=== PATIENT | male | born 1980 | race Caucasian/White ===

== ENCOUNTER 2017-08-17 17:54 | Emergency (ER) | payer OTHER ==
[2017-08-17 18:06] VITALS: BP 131/85; PULSE 86; TEMP 98.7; BMI 23.4
--- NOTE | 2017-08-17 18:07 | PDOC ---
Rapid Medical Evaluation Time Seen by Provider: 08/17/17 18:05 Medical Evaluation: Allergies Allergy/AdvReac Type Severity Reaction Status Date / Time No Known Allergies Allergy Verified 08/17/17 18:01 08/17/17 18:05 The patient presents with a chief complaint of: urinary frequency I have performed a brief in-person evaluation of this patient. Pertinent physical exam findings: vss I have ordered the following: ua, needs fs The patient will proceed to the ED for further evaluation.
[2017-08-17 18:29] LABS: URINE APPEARANCE CLEAR; URINE BILIRUBIN NEGATIVE (NEGATIVE); URINE BLOOD NEGATIVE (NEGATIVE); URINE COLOR COLORLESS; URINE GLUCOSE (UA) NEGATIVE (NEGATIVE); URINE KETONE NEGATIVE (NEGATIVE); URINE LEUK ESTERASE NEGATIVE (NEGATIVE); URINE NITRITE NEGATIVE (NEGATIVE); URINE PROTEIN NEGATIVE (NEGATIVE); URINE UROBILINOGEN NEGATIVE mg/dL (0.2-1.0)
--- NOTE | 2017-08-17 18:43 | PDOC ---
History of Present Illness - General Chief Complaint: Urinary Problem Stated Complaint: URINE PROBLEM Time Seen by Provider: 08/17/17 18:05 History Source: Patient - History of Present Illness Timing/Duration: reports: other Past History - Past Medical History Allergies/Adverse Reactions: Allergies Allergy/AdvReac Type Severity Reaction Status Date / Time No Known Allergies Allergy Verified 08/17/17 18:01 Home Medications: Ambulatory Orders No Home Medications 0 mg PO DAILY 11/01/13 COPD: No Other medical history: DENIES. - Suicide/Smoking/Psychosocial Hx Smoking History: Never smoked Have you smoked in the past 12 months: No Hx Alcohol Use: No Drug/Substance Use Hx: No Review of Systems - Review of Systems Constitutional: No: Chills, Fever ABD/GI: No: Nausea, Vomiting, Abdominal cramping : Yes: Frequency. No: Burning, Dysuria, Discharge, Flank Pain, Hematuria *Physical Exam - Vital Signs Last Vital Signs Temp Pulse Resp BP Pulse Ox 98.7 F 86 19 131/85 100 08/17/17 18:01 08/17/17 18:01 08/17/17 18:01 08/17/17 18:01 08/17/17 18:01 - Physical Exam General Appearance: Yes: Appropriately Dressed. No: Apparent Distress HEENT: positive: Normal Voice Neck: positive: Supple Respiratory/Chest: negative: Respiratory Distress Gastrointestinal/Abdominal: positive: Soft. negative: Tender Musculoskeletal: negative: CVA Tenderness Integumentary: positive: Dry, Warm Neurologic: positive: Fully Oriented, Alert, Normal Mood/Affect Medical Decision Making - Medical Decision Making 08/17/17 18:28 37-year-old male, no significant history, here with multiple complaints. Patient complaining of urinary frequency 1 week. No dysuria otherwise and no hematuria, flank pain, nausea, vomiting, testicular pain/swelling, fever or chills. Denies urethral discharge, new sexual partner or h/o STDs. No dizziness/weakness/weight loss. Patient does report that he purposely started drinking more water frequently as he has "given up" drinking soda and juices. Patient also states he has bilateral shoulder pain x 2 weeks after recently started working out in the gym. Not taking anything for pain. See exam Urinary freq Possibly 2/2 more fluid uptake vs less likely uti or STD Exam unremarkable -ua/cx/gc/chlam -anticipate discharge B/l shoulder pain M/l MSK, 2/2 recent weight lifting Exam unremarkable -dc w/ otc meds as needed 08/17/17 18:44 Ua w/ no e/o infxn and neg glucose. Cxs sent. Pt discharged to f/u on cx results *DC/Admit/Observation/Transfer Diagnosis at time of Disposition: Urinary frequency - Discharge Dispostion Disposition: HOME Condition at time of disposition: Good - Referrals Referrals: Pee Elder [Primary Care Provider] - - Patient Instructions Additional Instructions: The cause of your urinary frequency is possibly due to you increasing fluids. Your urinalysis did not show any evidence of infection and there was no glucose (sugar) Call for culture results in 2-3 days at [phone] Your bilateral shoulder pain is most likely muscular, due to your recent weight lifting. Rest and take Motrin as needed - Post Discharge Activity
== END 2017-08-17 18:50 | disposition home or self-care (01) ==
LOC: JERFT 17:54
DX: R35.0 Frequency of micturition (principal)
CPT/HCPCS: 36415; 81003; 87086; 87491; 87591; 99281-25

== ENCOUNTER 2019-06-28 22:17 | Emergency (ER) | payer OTHER ==
[2019-06-28 22:41] VITALS: BMI 24.8
[2019-06-29] MEDS ORDERED: SODIUM CHLORIDE 1,000 ML IV STA (00:09)
[2019-06-29 00:51] LABS: BASO % 0.5 % (0-2.0); EOS % 1.9 % (0-4.5); HEMATOCRIT 41.9 % (35.4-49); HEMOGLOBIN 14.3 GM/dL (11.7-16.9); LYMPH % 33.9 % (8-40); MCH 32.2 pg (25.7-33.7); MCHC 34.1 g/dl (32.0-35.9); MEAN CELL VOLUME 94.4 fl (80-96); MEAN PLT VOLUME 7.9 fl (7.5-11.1); MONO % 10.5 % (3.8-10.2); NEUT % 53.2 % (42.8-82.8); PLATELET COUNT 221 K/MM3 (134-434); RBC 4.44 M/mm3 (4.00-5.60); RDW 12.7 % (11.9-15.9); WHITE BLOOD COUNT 7.3 K/mm3 (4.0-10.0)
[2019-06-29 01:04] LABS: PH,URINE 6.5 (5.0-8.0); URINE APPEARANCE CLEAR; URINE BILIRUBIN NEGATIVE (NEGATIVE); URINE COLOR YELLOW; URINE GLUCOSE (UA) NEGATIVE (NEGATIVE); URINE KETONE NEGATIVE (NEGATIVE); URINE LEUK ESTERASE NEGATIVE (NEGATIVE); URINE NITRITE NEGATIVE (NEGATIVE); URINE PROTEIN NEGATIVE (NEGATIVE); URINE UROBILINOGEN 0.2 mg/dL (0.2-1.0)
--- NOTE | 2019-06-29 01:10 | PDOC ---
History of Present Illness - General Chief Complaint: Urinary Problem Stated Complaint: URANAL PROBLEM Time Seen by Provider: 06/28/19 23:28 Past History - Past Medical History Allergies/Adverse Reactions: Allergies Allergy/AdvReac Type Severity Reaction Status Date / Time No Known Allergies Allergy Verified 06/28/19 22:29 Home Medications: Ambulatory Orders No Home Medications 0 mg PO DAILY 11/01/13 COPD: No - Psycho Social/Smoking Cessation Hx Smoking History: Never smoked Have you smoked in the past 12 months: No Hx Alcohol Use: No Drug/Substance Use Hx: No *Physical Exam - Vital Signs Last Vital Signs Temp Pulse Resp BP Pulse Ox 98.4 F 65 16 139/77 100 06/28/19 22:29 06/28/19 22:29 06/28/19 22:29 06/28/19 22:29 06/28/19 22:29 ED Treatment Course - LABORATORY CBC & Chemistry Diagram: 06/28/19 00:30 06/28/19 00:30 Discharge - Follow up/Referral Referrals: ON STAFF,NOT [Primary Care Provider] - Naga Chowdary MD [Staff Physician] - Tereso Copeland MD [Staff Physician] - Wally Naylor MD [Staff Physician] - Ebony Lorenzo MD [Staff Physician] - Arturo Coulter MD., MD [Staff Physician] - CallBack Reminder: GC results - Patient Discharge Instructions - Post Discharge Activity
[2019-06-29 01:19] LABS: ALBUMIN 3.9 g/dl (3.4-5.0); BILIRUBIN,TOTAL 0.5 mg/dL (0.2-1); BLOOD UREA NITROGEN 17.3 mg/dL (7-18); CALCIUM 8.7 mg/dL (8.5-10.1); CREATININE 1.2 mg/dL (0.55-1.3); POTASSIUM 3.9 mmol/L (3.5-5.1); TOT PROT 6.6 g/dl (6.4-8.2)
--- NOTE | 2019-06-29 01:28 | PDOC ---
Attending Attestation - Resident Resident Name: FaithCorinne - ED Attending Attestation I have performed the following: I have examined & evaluated the patient, The case was reviewed & discussed with the resident, I agree w/resident's findings & plan, Exceptions are as noted - HPI HPI: 06/29/19 01:24 39 M with no PMH presents to ED with urinary frequency and urgency. Pt estimates urinating about 40 times yesterday. He denies any fevers/chills. Endorses some suprapubic discomfort. Denies flank pain. Denies abdominal pain/N/ V. Had a few episodes of loose stool. Denies excessive thirst. 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 - Physicial Exam PE: 06/29/19 01:26 "GENERAL: Awake, alert, and fully oriented, in no acute distress. HEAD: No signs of trauma EYES: PERRLA, EOMI, sclera anicteric, conjunctiva clear ENT: Auricles normal inspection, hearing grossly normal, nares patent, oropharynx clear without exudates. Moist mucosa NECK: Nontender, no stepoffs, Normal ROM, supple, no lymphadenopathy, JVD, or masses LUNGS: Breath sounds equal, clear to auscultation bilaterally. No wheezes, and no crackles HEART: Regular rate and rhythm, normal S1 and S2, no murmurs, rubs or gallops ABDOMEN: Soft, nontender, normoactive bowel sounds. No guarding, no rebound. No masses EXTREMITIES: Normal range of motion, no edema. No clubbing or cyanosis. No cords, erythema, or tenderness NEUROLOGICAL: Cranial nerves II through XII intact. 5/5 strength and sensation in all extremities, Normal speech, normal gait, normal cerebellar function SKIN: Warm, Dry, normal turgor, no rashes or lesions noted. - Medical Decision Making 06/29/19 01:26 39 M with urinary freq and urgency. Suspicious for UTI. Pt also offered STD testing but no clinical signs of STD. - Labs - UA, UCx 06/29/19 01:27 Labs completely normal UA clean, but given partial treatment with cipro, UA may not reflect a UTI Will start pt on course of keflex DC with urology f/u Pt is well appearing, with normal vitals. Clinically stable for DC at this time. I discussed the physical exam findings, ancillary test results and final diagnoses with the patient. I answered all of the patient's questions. The patient was satisfied with the care received and felt comfortable with the discharge plan and treatment plan. The patient agrees to follow up with the primary care physician within 24-72 hours.
--- NOTE | 2019-06-29 01:41 | PDOC ---
History of Present Illness - General Chief Complaint: Urinary Problem Stated Complaint: URANAL PROBLEM Time Seen by Provider: 06/28/19 23:28 History Source: Patient Exam Limitations: No Limitations - History of Present Illness Initial Comments: 06/29/19 01:50 39y M with no significant PMH presenting to ED with complaints of urinary frequency and urgency. Symptoms started 2d ago. Pt states that he drinks plenty of water and says that he attributed frequency to drinking water however pt states that today he had urgency with little urine output and pain in the suprapubic area as well as bilateral flanks. Pt states that he also has diarrhea. He has not had symptoms like this before. Denies dysuria, hematuria, n /v, fevers, chills, chest pain, sob, rectal pain, discharge, ulcers, warts, lesions, testicular pain. Denies history of STDs. 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 PMD: PMH: none PSH: none Allergies: nkda Social: Past History - Past Medical History Allergies/Adverse Reactions: Allergies Allergy/AdvReac Type Severity Reaction Status Date / Time No Known Allergies Allergy Verified 06/28/19 22:29 Home Medications: Ambulatory Orders No Home Medications 0 mg PO DAILY 11/01/13 Cephalexin Monohydrate [Keflex -] 500 mg PO Q6H #32 capsule 06/29/19 COPD: No - Psycho Social/Smoking Cessation Hx Smoking History: Never smoked Have you smoked in the past 12 months: No Hx Alcohol Use: No Drug/Substance Use Hx: No Review of Systems - Review of Systems Constitutional: No: Symptoms Reported HEENTM: No: Symptoms Reported Respiratory: No: Symptoms reported Cardiac (ROS): No: Symptoms Reported ABD/GI: Yes: See HPI : Yes: See HPI Musculoskeletal: Yes: See HPI Integumentary: No: See HPI Neurological: No: See HPI *Physical Exam - Vital Signs Last Vital Signs Temp Pulse Resp BP Pulse Ox 98.4 F 65 16 139/77 100 06/28/19 22:29 06/28/19 22:29 06/28/19 22:29 06/28/19 22:29 06/28/19 22:29 - Physical Exam General Appearance: Yes: Nourished, Appropriately Dressed. No: Apparent Distress HEENT: positive: EOMI, ERICK, Normal ENT Inspection Neck: positive: Trachea midline, Supple Respiratory/Chest: positive: Lungs Clear, Normal Breath Sounds Cardiovascular: positive: Regular Rhythm, Regular Rate, S1, S2. negative: Edema , JVD, Murmur Gastrointestinal/Abdominal: positive: Normal Bowel Sounds, Soft. negative: Tender Male Genitalia: positive: normal genitalia. negative: discharge, testicular tenderness, testicular mass, epididymus tender, hernia Musculoskeletal: negative: CVA Tenderness Extremity: positive: Normal Capillary Refill. 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, Fully Oriented, Alert, Normal Mood/ Affect, Normal Response, Motor Strength 10/01 ED Treatment Course - LABORATORY CBC & Chemistry Diagram: 06/28/19 00:30 06/28/19 00:30 - ADDITIONAL ORDERS Additional order review: Laboratory Results 06/28/19 06/28/19 00:30 00:30 Sodium 143 Potassium 3.9 Chloride 107 Carbon Dioxide 32 Anion Gap 4 L BUN 17.3 Creatinine 1.2 Est GFR (CKD-EPI)AfAm 89.00 Est GFR (CKD-EPI)NonAf 76.79 Random Glucose 99 Calcium 8.7 Total Bilirubin 0.5 AST 19 ALT 28 Alkaline Phosphatase 50 Total Protein 6.6 Albumin 3.9 Urine Color Yellow Urine Appearance Clear Urine pH 6.5 Ur Specific [place] 1.005 L Urine Protein Negative Urine Glucose (UA) Negative Urine Ketones Negative Urine Blood Negative Urine Nitrite Negative Urine Bilirubin Negative Urine Urobilinogen 0.2 Ur Leukocyte Esterase Negative 06/28/19 00:30 RBC 4.44 MCV 94.4 MCHC 34.1 RDW 12.7 MPV 7.9 Neutrophils % 53.2 Lymphocytes % 33.9 D Monocytes % 10.5 H Eosinophils % 1.9 D Basophils % 0.5 - Medications Given in the ED: ED Medications Discontinued Medications Generic Name Dose Route Start Last Admin Trade Name Freq PRN Reason Stop Dose Admin Sodium Chloride 1,000 mls @ 1,000 mls/hr 06/29/19 00:09 06/29/19 00:53 Normal Saline - IV 06/29/19 01:08 1,000 mls/hr ASDIR STA Administration Medical Decision Making - Medical Decision Making 06/29/19 01:53 pt presenting with dysuria. took cipro already. vitals wnl pe: benign ddx includes uti, gc, diabtetes, bph, urinary retention, pyelonephritis, electrolyte abnormality, stone will order basic labs, ua. with ucx. fluids. 10m post void bladder volume 45ml; no retention. labs wnl. ua negative for infection however this could be due to use of cipro. given ongoing symptoms, will treat with keflex. offered pt testing for gc; pt is in a monogamous relationship, no history of stds or ivdu. will get call back for positive results. dc home, uro f/u given. Discharge - Discharge Information Problems reviewed: Yes Clinical Impression/Diagnosis: Urinary frequency Condition: Good Disposition: HOME - Admission No - Additional Discharge Information Prescriptions: Cephalexin Monohydrate [Keflex -] 500 mg PO Q6H #32 capsule - Follow up/Referral Referrals: Tereso Copeland MD [Staff Physician] - Wally Naylor MD [Staff Physician] - Naga Chowdary MD [Staff Physician] - Arturo Coulter MD., MD [Staff Physician] - ON STAFF,NOT [Primary Care Provider] - Ebony Lorenzo MD [Staff Physician] - CallBack Reminder: GC results - Patient Discharge Instructions Patient Printed Discharge Instructions: DI for Urinary Tract Infection (UTI) Additional Instructions: You were seen in the emergency room today for urinary symptoms. The blood work is normal and the urine is not infected, but this could be due to the use of Cipro. A new prescription for Keflex was sent to your pharmacy (500mg four times per day for 7 days). I also recommend follow up with urology. Referrals are provided below. Come back to the emergency room if you notice blood in the urine, are unable to produce urine, you develop fever, rectal pain or if any new or concerning symptom develops. Thank you - Post Discharge Activity
[2019-06-29 01:56] VITALS: BP 118/73; PULSE 60; TEMP 98.1
== END 2019-06-29 02:00 | disposition home or self-care (01) ==
LOC: JER 22:17
PROC: 3E0337Z Introduction of Electrolytic and Water Balance Substance into Peripheral Vein, Percutaneous Approach (ICD-10-PCS; principal; 2019-06-28)
DX: R35.0 Frequency of micturition (principal)
CPT/HCPCS: 36415; 80053; 81003; 85025; 87086; 87491; 87591; 99284-25; J7030

== ENCOUNTER 2020-08-11 12:51 | Emergency (ER) | payer OTHER ==
[2020-08-11] MEDS ORDERED: KETOROLAC TROMETHAMINE 30 MG/1 ML VIAL IM ONE (13:53)
[2020-08-11] MEDS ORDERED: KETOROLAC TROMETHAMINE 30 MG/1 ML VIAL ONE (14:07)
[2020-08-11 14:22] VITALS: TEMP 98.4; BMI 23.2
[2020-08-11 15:36] LABS: URINE APPEARANCE CLEAR; URINE BILIRUBIN NEGATIVE (NEGATIVE); URINE COLOR YELLOW; URINE GLUCOSE (UA) NEGATIVE (NEGATIVE); URINE KETONE TRACE (NEGATIVE); URINE LEUK ESTERASE NEGATIVE (NEGATIVE); URINE NITRITE NEGATIVE (NEGATIVE); URINE PROTEIN NEGATIVE (NEGATIVE); URINE UROBILINOGEN 0.2 mg/dL (0.2-1.0)
[2020-08-11 17:10] VITALS: BP 127/78; PULSE 86
== END 2020-08-11 17:10 | disposition home or self-care (01) ==
LOC: JER 12:51
PROC: 3E0233Z Introduction of Anti-inflammatory into Muscle, Percutaneous Approach (ICD-10-PCS; principal; 2020-08-11)
DX: K40.90 Unilateral inguinal hernia, without obstruction or gangrene, not specified as recurrent (principal)
CPT/HCPCS: 36415; 76856-TC; 81003; 87086; 87491; 87591; 99285-25